=== PATIENT | female | born 1950 | race Caucasian/White ===

== ENCOUNTER 2016-12-15 10:50 | Emergency (ER) | payer OTHER, MEDICARE ==
[~2016-12-15] VITALS: Ht 152.4 cm; Wt 80.3 kg
[~2016-12-15 10:50] MED LIST: ZOFRAN4 M2 PO
--- NOTE | 2016-12-15 11:08 | ED GENERAL ADULT ---
History of Present Illness General Chief Complaint: Neuro Symptoms/ Deficit Stated Complaint: NUMBNESS ON RT SIDE OF FACE Source: patient, family Exam Limitations: no limitations Vital Signs & Intake/Output Vital Signs & Intake/Output Vital Signs Date Time Temp Pulse Resp B/P B/P Pulse O2 O2 Flow FiO2 Mean Ox Delivery Rate 12/15 1721 97.2 62 18 166/76 99 Room Air 12/15 1253 98.0 69 20 125/67 95 Room Air 12/15 1238 98.0 70 20 147/73 93 Room Air 12/15 1055 98.6 74 20 177/79 97 Room Air ED Intake and Output 12/16 0000 12/15 1200 Intake Total 0 Output Total Balance 0 Intake, Oral 0 Patient 177 lb Weight Weight Reported by Patient Measurement Method Allergies Coded Allergies: animal dander (SNEEZING 12/15/16) Reconcile Medications Aspirin (Ecotrin*) 81 MG TABLET.DR 1 TAB PO DAILY HEART/BLOOD (Reported) Atorvastatin Calcium 10 MG TABLET 0.5 TAB PO DAILY CHOLESTEROL (Reported) Diazepam 10 MG TABLET 1 TAB PO DAILY CEREBRAL PALSY (Reported) Metoprolol Succinate 25 MG TAB 2 TAB PO DAILY HEART/BP (Reported) Onabotulinumtoxina (Botox) (Unknown Strength) VIAL (Unknown Dose) INJ Q3M CEREBRAL PALSY (Reported) Ondansetron HCl (Zofran) 4 MG TABLET 1 TAB PO Q6HR PRN NAUSEA Triage Note: PT STATES FOR THE PAST COUPLE DAYS SHE HAS HAD INTERMITTANT NUMBNESS FROM NOSE TO RIGHT EAR ACROSS HER FACE. STATES TUESDAY SHE WAS SICK WITH DIZZY, LIGHTHEADED AND NAUSEA. STATES SHE GETS IT OFTEN. NEUROS INTACT IN TRIAGE. PT STATES SHE IS HAVING THE NUMBNESS RIGHT NOW Triage Nurses Notes Reviewed? yes Onset: Abrupt Duration: day(s): Timing: recent history HPI: 12/15/16 11:20 am 66-year-old female with a history of cerebral palsy presents to the emergency department for right-sided facial numbness. According to the patient she was in her usual state of health until approximately 3 days ago when she developed intermittent right sided facial numbness. She denies any headache. She denies any rash or tick bite. She denies any new upper or lower extremity weakness. She denies any new slurred speech. No fever. She does admit to recently starting medical marijuana. Onset of the symptoms were abrupt. Duration of the symptoms was 3 days. The severity is significant as her symptoms as they required her to come to the emergency department for care. Past History Travel History Traveled to [place] past 21 day No Medical History Any Pertinent Medical History? see below for history Neurological: CEREBAL PALSY Cardiovascular: hypertension, hyperlipidemia Cancer(s): STAGE 1 UTERINE CANCER Surgical History Surgical History: non-contributory Psychosocial History What is your primary language American Tobacco Use: Never used ETOH Use: occasional use Illicit Drug Use: denies illicit drug use Family History Hx Contributory? No Review of Systems Review of Systems Constitutional: Denies: fever. EENTM: Denies: visual changes. Respiratory: Denies: short of breath. Cardiovascular: Denies: chest pain. GI: Reports: no symptoms. Genitourinary: Reports: no symptoms. Musculoskeletal: Reports: no symptoms. Skin: Denies: rash. Neurological/Psychological: Reports: paresthesia. Denies: weakness. Hematologic/Endocrine: Reports: no symptoms. Immunologic/Allergic: Reports: no symptoms. Physical Exam Physical Exam General Appearance: well developed/nourished, alert, awake, anxious, mild distress Head: atraumatic Eyes: Bilateral: normal appearance, PERRL, EOMI. Ears, Nose, Throat: normal pharynx Neck: normal inspection, supple, full range of motion Respiratory: normal breath sounds, chest non-tender, no respiratory distress Cardiovascular: regular rate/rhythm, edema Gastrointestinal: non-tender Back: normal range of motion Extremities: normal inspection, normal range of motion, no edema Neurologic/Psych: no motor/sensory deficits, awake, alert, oriented x 3 Skin: intact, normal color, warm/dry Comments: The patient's physical exam is unremarkable other than some minimal right-sided facial asymmetry. She has a slight droop to her right lip. She also has spastic contraction episodes to the right arm,. This is not new and is secondary to her underlying cerebral palsy. Core Measures ACS in differential dx? No CVA/TIA Diagnosis: No Severe Sepsis Present: No Septic Shock Present: No Progress Differential Diagnoses I considered the following diagnoses in my evaluation of the patient: [CVA, TIA, Lyme disease, Schaffer's palsy, adverse drug reaction,] Plan of Care: Orders Procedure Date/time Status Regular Diet 12/15 D Active TROPONIN LEVEL 12/15 1126 Complete LYME TITRE 12/15 1126 Active COMPREHENSIVE METABOLIC PANEL 12/15 1126 Complete CBC WITHOUT DIFFERENTIAL 12/15 1126 Complete EKG 12/15 1126 Active Laboratory Tests 12/15/16 1250: Lyme Disease Antibody Pending 12/15/16 1115: Anion Gap 10, Estimated GFR > 60, BUN/Creatinine Ratio 22.2, Glucose 86, Calcium 9.7, Total Bilirubin 0.8, AST 25, ALT 41, Alkaline Phosphatase 49, Troponin I < 0.01, Total Protein 6.5, Albumin 4.2, Globulin 2.3, Albumin/Globulin Ratio 1.8, CBC w Diff NO MAN DIFF REQ, RBC 4.45, MCV 89.6, MCH 30.6, RDW 13.3, MPV 9.0, Gran % 65.1, Lymphocytes % 24.1, Monocytes % 8.9, Eosinophils % 1.1, Basophils % 0.8, Absolute Granulocytes 3.3, Absolute Lymphocytes 1.2, Absolute Monocytes 0.5 , Absolute Eosinophils 0.1, Absolute Basophils 0, PUBS MCHC 34.1 Labs were sent and an EKG and head CT were ordered. (SAMIRA GARCIA DO) Initial ED EKG: NSR Departure Departure Disposition: STILL A PATIENT Condition: Stable Clinical Impression Primary Impression: Facial paresthesia Referrals: AUGIE HERRERA MD (PCP/Family) Departure Forms: Customer Survey General Discharge Information Comments 12/15/16 The patient's labs and EKG were essentially unremarkable. CT the head was negative. MRI of the head was negative. MRA revealed 2 mm aneurysm. The patient was discussed with her neurologist. She did have a minimal right sided facial weakness, it was somewhat unclear if this was related to her cerebral palsy. The patient will follow up with a neurologist this week. She was treated with Valtrex, prednisone, and natural tears to the right eye. Critical Care Note Critical Care Note Critical Care Time: non-applicable
--- NOTE | 2016-12-15 12:14 | CT SCAN REPORT ---
EXAMINATION: CT HEAD WITHOUT CONTRAST CLINICAL INFORMATION: Right facial paresthesia COMPARISON: 11/09/2015 TECHNIQUE: Contiguous axial imaging was performed from the skull base to vertex without intravenous administration of contrast. FINDINGS: Some limitation from motion. There is no midline shift. No mass effect. No hemorrhage. Basilar cisterns appear patent. Posterior fossa risk grossly within normal limits. No extra-axial collection. The visualized sinuses are grossly clear. IMPRESSION: Negative acute noncontrast CT of the brain. Given history if further evaluation is clinically warranted recommend pre and postcontrast MRI.
[2016-12-15 12:15] LABS: ABSOLUTE BASOPHIL COUNT 0 /CUMM (0.0-0.2); ABSOLUTE EOSINOPHIL COUNT 0.1 /CUMM (0.0-0.7); ABSOLUTE GRANULOCYTE CT 3.3 /CUMM (1.4-6.5); ABSOLUTE LYMPH COUNT 1.2 /CUMM (1.2-3.4); ABSOLUTE MONOCYTE COUNT 0.5 /CUMM (0.10-0.60); BASOPHIL % 0.8 % (0.0-2.0); EOSINOPHIL % 1.1 % (0-5); GRANULOCYTE % 65.1 % (42.2-75.2); HEMATOCRIT 39.9 % (37-47); MEAN CORPUSCULAR HGB 30.6 PG (27.0-31.0); MEAN CORPUSCULAR HGB CONC 34.1 G/DL (33.0-37.0); MEAN CORPUSCULAR VOLUME 89.6 FL (81.0-99.0); PLATELET COUNT 194 /CUMM (130-400); RBC DISTRIBUTION WIDTH 13.3 % (11.5-14.5); RED BLOOD CELL CT 4.45 /CUMM (4.20-5.40); WHITE BLOOD CELL COUNT 5.1 /CUMM (4.8-10.8)
[2016-12-15] MEDS ORDERED: DIAZEPAM10 M1 PO (16:01)
[2016-12-15] MEDS ORDERED: ATORVASTATIN CA10 M1 PO (16:01)
[2016-12-15] MEDS ORDERED: BOTOX200 UNIT INJ (16:02)
[2016-12-15] MEDS ORDERED: METOPROLOL SUCC25 M1 PO (16:02)
[2016-12-15] MEDS ORDERED: ASPIRIN EC81 M1 PO (16:02)
[2016-12-15 17:21] VITALS: BP 166/76
--- NOTE | 2016-12-15 17:42 | MRI REPORT ---
MRI OF THE BRAIN WITHOUT IV CONTRAST MRA HEAD WITHOUT IV CONTRAST INDICATION: Right facial numbness. Rule out CVA. COMPARISON: Head CT performed earlier today. TECHNIQUE: Multiplanar multisequence MR imaging of the brain was obtained without IV contrast. Additionally, a [id number] MRA of the [place] was acquired. 3-D post processing including the acquisition of multiplanar MIP reformats obtained at the technologist workstation and utilized for image interpretation. FINDINGS: BRAIN MRI: There is no hydrocephalus, extra-axial surface collection, or herniation. Mild T2 signal changes throughout the supratentorial white matter, most likely mild chronic microangiopathy. The major flow voids at the skull base are preserved. There is no acute infarct on diffusion-weighted imaging. There is no intracranial hemorrhage on the gradient recalled echo acquisition. The midline structures are normal. The cerebellar tonsils are normally positioned. The cerebellum and brainstem are normal. The craniocervical junction is normal. Osseous marrow signal intensity is homogenous. The visualized soft tissues are unremarkable. Small osteoma along the outer cortical table of the anterior left frontal calvarium. HEAD MRA: The vertebrobasilar system, the intracranial internal carotid arteries, and the anterior, middle, and posterior cerebral artery complexes exhibit normal flow related signal without significant arterial stenosis and without acute arterial occlusion. There is a -type HOSPICE VOL[employer]TEER on the right side. A 2 mm aneurysm projects medially from the left paraclinoid internal carotid artery segment. There is a 1 mm vascular excrescence projecting posteriorly from the right anterior cerebral artery/anterior communicating artery junction that may reflect a small aneurysm versus infundibulum. IMPRESSION: - No acute intracranial findings. No acute infarcts. Mild chronic microangiopathy. - No acute arterial occlusions and no significant arterial stenoses intracranially. - A 2 mm aneurysm projects medially from the left paraclinoid internal carotid artery segment. There is a 1 mm vascular excrescence projecting posteriorly from the right anterior cerebral artery/anterior communicating artery junction that may reflect a small aneurysm versus infundibulum.
== END 2016-12-15 18:40 ==
LOC: ERH 10:50
PROVIDERS: Emergency Medicine
DX: R20.2 Paresthesia of skin (principal)
CPT/HCPCS: 70551; 70555; 86618; 93005; 93010